=== PATIENT | female | born 1950 | race Caucasian/White ===

== ENCOUNTER 2019-04-21 08:52 | Emergency (ER) | payer OTHER ==
--- NOTE | 2019-04-21 09:33 | EDPHYS ---
Physician Documentation [facility] Name: Macey Briscoe Age: 69 yrs Sex: Female : 1950 Arrival Date: 04/21/2019 Time: 08:52 Bed 13 Private MD: ED Physician Feliberto Reyes HPI: 04/21 09:27 This 69 yrs old Female presents to ER via Ambulatory with complaints of Ear rn Pain. 09:27 The patient presents with pain. The complaints affect the left ear. Onset: The rn symptoms/episode began/occurred 2 day(s) ago. Modifying factors: The symptoms are alleviated by tylenol, the symptoms are aggravated by nothing. Severity of symptoms: At their worst the symptoms were mild in the emergency department the symptoms have improved. The patient has experienced similar episodes in the past. Reports treated for bronchitis a few weeks ago, s/p abx. now having left ear pain, no drainage, no sinus issues, no fever, cough gone. No trauma. . Historical: - Allergies: 09:02 No Known Allergies; la1 - Home Meds: 09:02 Digoxin Oral [Active]; Sotalol Oral [Active]; valsartan oral oral [Active]; amlodipine la1 oral [Active]; Simvastatin Oral [Active]; - PMHx: 09:02 Hyperlipidemia; Hypertension; la1 - Immunization history:: Adult Immunizations up to date. - Social history:: Smoking status: Patient/guardian denies using tobacco. - Ebola Screening: : No symptoms or risks identified at this time. - Family history:: not pertinent. - Hospitalizations: : No recent hospitalization is reported. ROS: 09:27 Constitutional: Negative for fever, chills, and weight loss, Eyes: Negative for injury, rn pain, redness, and discharge, ENT: + left ear pain and nasal congestion/runny nose Neck: Negative for injury, pain, and swelling, Cardiovascular: Negative for chest pain, palpitations, and edema, Respiratory: Negative for shortness of breath, cough, wheezing, and pleuritic chest pain, Abdomen/GI: Negative for abdominal pain, nausea, vomiting, diarrhea, and constipation, MS/Extremity: Negative for injury and deformity, Skin: Negative for injury, rash, and discoloration, Neuro: Negative for headache, weakness, numbness, tingling, and seizure. Exam: 09:27 Constitutional: This is a well developed, well nourished patient who is awake, alert, rn and in no acute distress. Head/Face: Normocephalic, atraumatic. Eyes: Pupils equal round and reactive to light, extra-ocular motions intact. Lids and lashes normal. Conjunctiva and sclera are non-icteric and not injected. Cornea within normal limits. Periorbital areas with no swelling, redness, or edema. ENT: Nares patent. No nasal discharge, no septal abnormalities noted. Oropharynx clear, no swelling or exudate. Left TM with mild erythema/inflammation, no fluid or drainage. Neck: Trachea midline, no thyromegaly or masses palpated, and no cervical lymphadenopathy. Supple, full range of motion without nuchal rigidity, or vertebral point tenderness. No Meningismus. Neuro: Awake and alert, GCS 15, oriented to person, place, time, and situation. Cranial nerves II-XII grossly intact. Motor strength 5/5 in all extremities. Sensory grossly intact. Cerebellar exam normal. Normal gait. Vital Signs: 09:02 BP 158 / 82; Pulse 76; Resp 16; Temp 97.1; Pulse Ox 100% on R/A; Weight 90.72 kg; la1 Height 5 ft. 10 in. (177.80 cm); 09:02 Body Mass Index 28.70 (90.72 kg, 177.80 cm) la1 MDM: 09:00 Patient medically screened. rn 09:27 Differential diagnosis: otitis media, otitis externa, ruptured TM, acute otalgia, rn myringitis. Data reviewed: vital signs, nurses notes, and as a result, I will discharge patient. Counseling: I had a detailed discussion with the patient and/or guardian regarding: the historical points, exam findings, and any diagnostic results supporting the discharge/admit diagnosis, the need for outpatient follow up, to return to the emergency department if symptoms worsen or persist or if there are any questions or concerns that arise at home. Special discussion: I discussed with the patient/guardian in detail that at this point there is no indication for admission to the hospital. It is understood, however, that if the symptoms persist or worsen the patient needs to return immediately for re-evaluation. Administered Medications: No medications were administered Disposition: 04/21/19 09:32 Discharged to Home. Impression: Acute myringitis, left ear. - Condition is Stable. - Medication Reconciliation Form, Thank You Letter, Antibiotic Education, Prescription Opioid Use form. - Follow up: Private Physician; When: As needed; Reason: Recheck today's complaints, Re-evaluation by your physician. - Problem is new. - Symptoms have improved. Signatures: Feliberto Reyes MD MD rn AttemaJoey RN RN la1 Corrections: (The following items were deleted from the chart) 09:29 09:27 Constitutional: Negative for fever, chills, and weight loss, Eyes: Negative for rn injury, pain, redness, and discharge, ENT: + left ear pain Neck: Negative for injury, pain, and swelling, Cardiovascular: Negative for chest pain, palpitations, and edema, Respiratory: Negative for shortness of breath, cough, wheezing, and pleuritic chest pain, Abdomen/GI: Negative for abdominal pain, nausea, vomiting, diarrhea, and constipation, MS/Extremity: Negative for injury and deformity, Skin: Negative for injury, rash, and discoloration, Neuro: Negative for headache, weakness, numbness, tingling, and seizure, rn 09:35 09:32 04/21/2019 09:32 Discharged to Home. Impression: Acute myringitis, left ear. la1 Condition is Stable. Forms are Medication Reconciliation Form, Thank You Letter, Antibiotic Education, Prescription Opioid Use. Follow up: Private Physician; When: As needed; Reason: Recheck today's complaints, Re-evaluation by your physician. Problem is new. Symptoms have improved. rn
--- NOTE | 2019-04-21 09:33 | ER ---
Nurse's Notes [facility] Name: Macey Briscoe Age: 69 yrs Sex: Female : 1950 Arrival Date: 04/21/2019 Time: 08:52 Bed 13 Private MD: Diagnosis: Acute myringitis, left ear Presentation: 04/21 09:00 Presenting complaint: Patient states: sinus congestion since the 8th, worsening left la1 ear pain, recently took amoxicillin but not feeling any better. Transition of care: patient was not received from another setting of care. Onset of symptoms was April 21, 2019. Risk Assessment: Do you want to hurt yourself or someone else? Patient reports no desire to harm self or others. Initial Sepsis Screen: Does the patient meet any 2 criteria? No. Patient's initial sepsis screen is negative. Does the patient have a suspected source of infection? No. Patient's initial sepsis screen is negative. Care prior to arrival: None. 09:00 Method Of Arrival: Ambulatory la1 09:00 Acuity: JESSE 4 la1 Historical: - Allergies: 09:02 No Known Allergies; la1 - Home Meds: 09:02 Digoxin Oral [Active]; Sotalol Oral [Active]; valsartan oral oral [Active]; amlodipine la1 oral [Active]; Simvastatin Oral [Active]; - PMHx: 09:02 Hyperlipidemia; Hypertension; la1 - Immunization history:: Adult Immunizations up to date. - Social history:: Smoking status: Patient/guardian denies using tobacco. - Ebola Screening: : No symptoms or risks identified at this time. - Family history:: not pertinent. - Hospitalizations: : No recent hospitalization is reported. Screenin:03 Abuse screen: Denies threats or abuse. Nutritional screening: No deficits noted. la1 Tuberculosis screening: No symptoms or risk factors identified. Fall Risk None identified. Assessment: 09:03 General: Appears in no apparent distress. Behavior is calm, cooperative. Pain: la1 Complains of pain in left ear. Neuro: Level of Consciousness is awake, alert, obeys commands, Oriented to person, place, time, situation. Cardiovascular: Capillary refill < 3 seconds Patient's skin is warm and dry. Respiratory: Airway is patent Respiratory effort is even, unlabored, Respiratory pattern is regular, symmetrical. GI: No signs and/or symptoms were reported involving the gastrointestinal system. : No signs and/or symptoms were reported regarding the genitourinary system. EENT: Tympanic membrane bulging on left ear. Derm: No signs and/or symptoms reported regarding the dermatologic system. Vital Signs: 09:02 BP 158 / 82; Pulse 76; Resp 16; Temp 97.1; Pulse Ox 100% on R/A; Weight 90.72 kg; la1 Height 5 ft. 10 in. (177.80 cm); 09:02 Body Mass Index 28.70 (90.72 kg, 177.80 cm) la1 ED Course: 08:52 Patient arrived in ED. as 09:00 Joey Cardenas RN is Primary Nurse. la1 09:00 Feliberto Reyes MD is Attending Physician. rn 09:00 Triage completed. la1 09:03 Arm band placed on right wrist. la1 09:03 Patient has correct armband on for positive identification. la1 09:31 No provider procedures requiring assistance completed. Patient did not have IV access la1 during this emergency room visit. Administered Medications: No medications were administered Outcome: 09:31 Discharged to home ambulatory. la1 09:31 Condition: stable 09:31 Discharge instructions given to patient, Instructed on discharge instructions, follow up and referral plans. medication usage, Demonstrated understanding of instructions, follow-up care, medications. 09:32 Discharge ordered by . rn 09:35 Patient left the ED. la1 Signatures: Mary Kay Morejon Roman, MD MD rn Attema, Lee, RN RN la1
[2019-04-21 09:40] VITALS: BP 158/82; TEMP 97.1; O2SAT 100
== END 2019-04-21 09:35 | disposition home or self-care (01) ==
LOC: ER 08:52
DX: H73.002 Acute myringitis, left ear (principal); I10 Essential (primary) hypertension; E78.5 Hyperlipidemia, unspecified
CPT/HCPCS: 99281